=== PATIENT | female | born 1975 | race Caucasian/White ===

== ENCOUNTER → 2020-04-22 | Day surgery (SDC) | payer OTHER ==
[~2020-04-22] MED LIST: Dexamethasone 4 MG/ML SDV ONE; Dextrose 5%-0.9% NaCl 1,000 ML IV SCH; Glucagon,Human Recombinant 1 MG Vial IVPUSH ONE; HYDROmorphone 0.5 MG/0.5 ML Syringe IVPUSH ONE; Lactated Ringers 1,000 ML ONE; Lidocaine 1% 4 ML ONE; Metoclopramide 10 MG/2 ML SDV IVPUSH ONE; Midazolam 1 MG/ML 2 ML SDV ONE; Ondansetron 4 MG/2 ML SDV IVPUSH PRN; Ondansetron 4 MG/2 ML SDV ONE; Propofol 200 MG/20 ML SDV ONE; Succinylcholine/Sod PF 100 MG/5 ML SYRINGE IV ONE; diphenhydrAMINE 50 MG/ML SDV IVPUSH PRN; ePHEDrine 50 MG/ML SDV IVPUSH PRN; fentaNYL 100 MCG/2 ML SDV IVPUSH PRN; fentaNYL 100 MCG/2 ML SDV ONE
--- NOTE | 2020-04-22 09:02 | EDM.PDOC ---
ED HPI GENERAL MEDICAL PROBLEM - General Chief Complaint: ENT Problem Stated Complaint: FB STUCK IN THROAT Time Seen by Provider: 04/22/20 08:46 Source of Information: Reports: Patient History Limitations: Reports: No Limitations - History of Present Illness INITIAL COMMENTS - FREE TEXT/NARRATIVE: 44-year-old female presents to the ED with foreign body sensation in her upper throat or hypopharynx with pressure felt primarily behind the upper sternal notch. She was eating turkey for [employer] dinner last evening at about 1730 hrs. and a piece of turkey got stuck in her upper esophagus. She has had troubles with intermittent problems swallowing with foreign bodies getting stuck but they have always gone down in the past. She states she was up most of the night as her saliva would regurgitate and choke her. She still has the intermittent spasm of pain upper esophagus with swallowing. She is does not believe she has a significant reflux problem. Past surgery is that of a total abdominal hysterectomy and right oophorectomy. She had COVID-19 illness in early December 2019. Onset: Sudden Onset Date: 04/21/20 Onset Time: 17:30 Duration: Hour(s):, Constant Location: Reports: Chest (Pain in the superior aspect of the mid-upper chest made worse by trying to swallow. Foreign body sensation) Quality: Reports: Ache ( since last evening.), Pressure Severity: Moderate (Moderate pain with swallowing.) Improves with: Reports: None Worsens with: Reports: Other (To swallow.) Associated Symptoms: Reports: Chest Pain. 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) (And is nothing will stay down.) Throat Pain Score (Numeric/FACES): 8 - Related Data Allergies Allergy/AdvReac Type Severity Reaction Status Date / Time No Known Allergies Allergy Verified 04/22/20 08:47 Home Meds: Home Meds Levothyroxine Sodium [Synthroid] 150 mcg PO DAILY 12/29/15 [History] Multivitamin [Multi-Vitamin Daily] 1 tab PO DAILY 12/29/15 [History] Past Medical History Cardiovascular History: Reports: None Respiratory History: Reports: None Gastrointestinal History: Reports: Hemorrhoids Genitourinary History: Reports: Urinary Incontinence 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 Denies: Fever, Chills, Malaise, Weakness HEENT: Reports: No Symptoms Respiratory: Reports: No Symptoms Cardiovascular: Reports: No Symptoms Endocrine: Reports: No Symptoms GI/Abdominal: Reports: Other (Odynophagia with foreign body sensation upper esophagus and 1730 hrs. last evening.) : Reports: No Symptoms Musculoskeletal: Reports: No Symptoms Skin: Reports: No Symptoms Neurological: Reports: No Symptoms Psychiatric: Reports: No Symptoms Hematologic/Lymphatic: Reports: No Symptoms Immunologic: Reports: No Symptoms ED EXAM, ENT - Physical Exam Exam: See Below Exam Limited By: No Limitations General Appearance: Alert, WD/WN, No Apparent Distress, Other (Temperature is 36.3 with a heart rate of 64) Eye Exam: Bilateral Eye: Normal Inspection (No blepharal pallor or scleral icterus.), PERRL Mouth/Throat: Normal Inspection, Normal Gums, Normal Lips, Normal Teeth Head: Atraumatic, Normocephalic Neck: Normal Inspection, Supple, Non-Tender, Full Range of Motion. No: Lymphadenopathy (L), Lymphadenopathy (R) Respiratory/Chest: No Respiratory Distress, Lungs Clear, Normal Breath Sounds, No Accessory Muscle Use Cardiovascular: Normal Peripheral Pulses, Regular Rate, Rhythm, No Edema, No Gallop, No Murmur, No Rub GI/Abdominal: Normal Bowel Sounds, Soft, Non-Tender, No Organomegaly, No Mass, Pelvis Stable Back: Normal Inspection, Full Range of Motion Extremities: Normal Inspection, Normal Range of Motion, Non-Tender, No Pedal Edema Neurological: Alert, Oriented, CN II-XII Intact, Normal Cognition, Normal Gait Psychiatric: Normal Affect, Normal Mood Skin: Warm, Intact, Normal Color, No Rash Course - Vital Signs Last Recorded V/S: Last Vital Signs Temp 36.3 C 04/22/20 08:42 Pulse 64 04/22/20 08:42 Resp 16 04/22/20 08:42 BP 157/89 H 04/22/20 08:42 Pulse Ox 99 04/22/20 08:42 - Orders/Labs/Meds Orders: Active Orders 24 hr Category Date Time Status Patient Status [ADT] Routine ADT 04/22/20 12:11 Active Dextrose 5%-0.9% NaCl [Dextrose 5%-Normal Saline] 1,000 Med 04/22/20 09:00 Active ml IV ASDIRECTED Schedule Procedure [COMM] Urgent Oth 04/22/20 12:13 Ordered Medication Orders Dextrose/Sodium Chloride (Dextrose 5%-Normal Saline) 1,000 mls @ 999 mls/hr IV ASDIRECTED [facility] Last Admin: 04/22/20 09:05 Dose: 999 mls/hr Documented by: DANIELLE Labs: Laboratory Tests 04/22/20 04/22/20 Range/Units 08:50 08:50 WBC 4.20 (3.98-10.04) K/mm3 RBC 4.43 (3.98-5.22) M/mm3 Hgb 14.3 (11.2-15.7) gm/dl Hct 41.9 (34.1-44.9) % MCV 94.6 (79.4-94.8) fl MCH 32.3 H (25.6-32.2) pg MCHC 34.1 (32.2-35.5) g/dl RDW Std Deviation 43.9 (36.4-46.3) fL Plt Count 211 (182-369) K/mm3 MPV 8.1 L (9.4-12.3) fl Neut % (Auto) 66.2 (34.0-71.1) % Lymph % (Auto) 21.4 (19.3-51.7) % [place] % (Auto) 8.1 (4.7-12.5) % Eos % (Auto) 3.6 (0.7-5.8) Baso % (Auto) 0.5 (0.1-1.2) % Neut # (Auto) 2.78 (1.56-6.13) K/mm3 Lymph # (Auto) 0.90 L (1.18-3.74) K/mm3 [place] # (Auto) 0.34 (0.24-0.36) K/mm3 Eos # (Auto) 0.15 (0.04-0.36) K/mm3 Baso # (Auto) 0.02 (0.01-0.08) K/mm3 Sodium 144 (136-145) mEq/L Potassium 3.7 (3.5-5.1) mEq/L Chloride 106 (98-107) mEq/L Carbon Dioxide 27 (21-32) mEq/L Anion Gap 14.7 (5-15) BUN 15 (7-18) mg/dL Creatinine 1.0 (0.55-1.02) mg/dL Est Cr Clr Drug Dosing TNP Estimated GFR (MDRD) > 60 (>60) mL/min BUN/Creatinine Ratio 15.0 (14-18) Glucose 94 (74-106) mg/dL Calcium 9.2 (8.5-10.1) mg/dL Total Bilirubin 1.1 H (0.2-1.0) mg/dL AST 19 (15-37) U/L ALT 31 (14-59) U/L Alkaline Phosphatase 66 (46-116) U/L Total Protein 8.5 H (6.4-8.2) g/dl Albumin 4.6 (3.4-5.0) g/dl Globulin 3.9 gm/dL Albumin/Globulin Ratio 1.2 (1-2) Meds: Medications Generic Name Dose Route Start Last Admin Trade Name Freq PRN Reason Stop Dose Admin Dextrose/Sodium Chloride 1,000 mls @ 999 mls/hr 04/22/20 09:00 04/22/20 09:05 Dextrose 5%-Normal Saline IV 999 mls/hr ASDIRECTED KULDEEP Administration Discontinued Medications Generic Name Dose Route Start Last Admin Trade Name Freq PRN Reason Stop Dose Admin Glucagon 1 mg 04/22/20 08:58 04/22/20 09:06 Glucagen IVPUSH 04/22/20 08:59 1 mg ONETIME ONE Administration Hydromorphone HCl 0.5 mg 04/22/20 08:57 04/22/20 09:07 Dilaudid IVPUSH 04/22/20 08:58 0.5 mg ONETIME ONE Administration Metoclopramide HCl 7.5 mg 04/22/20 08:57 04/22/20 09:07 Reglan IVPUSH 04/22/20 08:58 7.5 mg ONETIME ONE Administration - Radiology Interpretation Free Text/Narrative:: 44-year-old female presents to the ED with a foreign body sensation in her upper esophagus since eating turkey for [employer] dinner last evening. At about 1730 hrs. she became aware of piece of turkey not wanting to go down when she swallowed. She has persistent odynophagia upon swallowing in the suprasternal notch area and occasional pressure central chest. She has not had any hemoptysis. She has had some troubles initiating swallowing in the past but does not give much history for a significant gastroesophageal reflux disease. Patient has no ability to swallow her saliva throughout the night. Examination is otherwise untoward. Plan D5 normal saline at open. She will receive Dilaudid 0.5 mg IV with Reglan 7.5 mg IV followed 20 minutes later by glucagon 1 mg IV in the hopes of trying to relieve the foreign body obstruction. Failing this she will require operative intervention with EGD. - Re-Assessments/Exams Free Text/Narrative Re-Assessment/Exam: 04/22/20 10:07 portable chest x-ray was completely normal with clear lung stevenson and normal cardiac silhouette. Patient did not get any relief of foreign body obstruction with IV medications. Attempted to swallow some water after the glucagon was given IV and she regurgitated it immediately. It appears therefore she will require EGD and I will speak with on-call surgeon Dr. Nicholas Aranda to see her in consultation with regards to removal of the foreign body in her proximal esophagus. 04/22/20 10:09 Lab work reveals a normal white count at 4.20 differential 66.2% neutrophils. Hemoglobin is 14.3 with hematocrit of 41.9. Platelet count is 211,000. Sodium 144 with potassium of 3.7 chloride 106 with a bicarb of 27. Anion gap is 14.7. BUN is 15 with a creatinine of 1.0 and a GFR greater than 60. Glucose is 94 with a calcium of 9.2. Total bilirubin is minimally elevated at 1.1. AST 19 with an ALT of 31 and alk phosphatase of 66. Total protein is 8.5 with an albumin fraction of 4.6. 04/22/20 11:51 patient did feel for period of time that she could swallow her saliva. However upon challenging her some serum mast she regurgitated it immediately. will therefore be seeing her in the ED at this time for EGD and removal of impacted food bolus in his upper esophagus. Departure - Departure Time of Disposition: 12:16 Disposition: DC/Tfer to Critical Access [facility] Condition: Fair Clinical Impression: Esophageal obstruction due to food impaction - Discharge Information *PRESCRIPTION DRUG MONITORING PROGRAM REVIEWED*: Not Applicable *COPY OF PRESCRIPTION DRUG MONITORING REPORT IN PATIENT LUDMILA: Not Applicable Sepsis Event Note (ED) - Evaluation Sepsis Screening Result: No Definite Risk - Focused Exam Vital Signs: Vital Signs Temp Pulse Resp BP Pulse Ox 04/22/20 08:42 36.3 C 64 16 157/89 H 99 - My Orders Last 24 Hours: My Active Orders 04/22/20 09:00 Dextrose 5%-0.9% NaCl [Dextrose 5%-Normal Saline] 1,000 ml IV ASDIRECTED - Assessment/Plan Last 24 Hours: My Active Orders 04/22/20 09:00 Dextrose 5%-0.9% NaCl [Dextrose 5%-Normal Saline] 1,000 ml IV ASDIRECTED
--- NOTE | 2020-04-22 09:53 | CR ---
Chest: Portable view of the chest was obtained. Comparison: No prior chest imaging is available. Heart size and mediastinum are normal. Lungs are clear with no acute parenchymal change. Bony structures are grossly intact. No radiopaque foreign object is seen. Impression: 1. Nothing acute is seen on portable chest x-ray. Diagnostic code #1
--- NOTE | 2020-04-22 11:48 | PCM.PREANE ---
Preanesthetic Assessment - Procedure Proposed Procedure: Foreign Body Extraction/EGD - Anesthesia/Transfusion/Family Hx Anesthesia History: Prior Anesthesia Without Reaction Family History of Anesthesia Reaction: No Transfusion History: No Prior Transfusion(s) Type of Transfusion Reactions: Reports: Unknown Intubation History: Unknown - Review of Systems General: No Symptoms Pulmonary: No Symptoms (Covid +: 2019-fatigue) Cardiovascular: No Symptoms Gastrointestinal: No Symptoms, Difficulty Swallowing Neurological: No Symptoms Other: Reports: Easy Bruising, Thyroid Problems (Hypothyroid) - Physical Assessment NPO Status Date: 04/22/20 NPO Status Time: 07:30 (pill) Vital Signs: Last Vital Signs Temp 36.3 C 04/22/20 08:42 Pulse 64 04/22/20 08:42 Resp 16 04/22/20 08:42 BP 157/89 H 04/22/20 08:42 Pulse Ox 99 04/22/20 08:42 Height: 1.7 m Weight: 70.307 kg ASA Class: 2E Mental Status: Alert & Oriented x3 Airway Class: Mallampati = 2 Dentition: Reports: Normal Dentition, Caries Thyro-Mental Finger Breadths: 3 Mouth Opening Finger Breadths: 3 ROM/Head Extension: Full Lungs: Clear to Auscultation, Normal Respiratory Effort Cardiovascular: Regular Rate, Regular Rhythm, No Murmurs - Lab Values: Laboratory Last Values WBC 4.20 K/mm3 (3.98-10.04) 04/22/20 08:50 RBC 4.43 M/mm3 (3.98-5.22) 04/22/20 08:50 Hgb 14.3 gm/dl (11.2-15.7) 04/22/20 08:50 Hct 41.9 % (34.1-44.9) 04/22/20 08:50 MCV 94.6 fl (79.4-94.8) 04/22/20 08:50 MCH 32.3 pg (25.6-32.2) H 04/22/20 08:50 MCHC 34.1 g/dl (32.2-35.5) 04/22/20 08:50 RDW Std Deviation 43.9 fL (36.4-46.3) 04/22/20 08:50 Plt Count 211 K/mm3 (182-369) 04/22/20 08:50 MPV 8.1 fl (9.4-12.3) L 04/22/20 08:50 Neut % (Auto) 66.2 % (34.0-71.1) 04/22/20 08:50 Lymph % (Auto) 21.4 % (19.3-51.7) 04/22/20 08:50 [place] % (Auto) 8.1 % (4.7-12.5) 04/22/20 08:50 Eos % (Auto) 3.6 (0.7-5.8) 04/22/20 08:50 Baso % (Auto) 0.5 % (0.1-1.2) 04/22/20 08:50 Neut # (Auto) 2.78 K/mm3 (1.56-6.13) 04/22/20 08:50 Lymph # (Auto) 0.90 K/mm3 (1.18-3.74) L 04/22/20 08:50 [place] # (Auto) 0.34 K/mm3 (0.24-0.36) 04/22/20 08:50 Eos # (Auto) 0.15 K/mm3 (0.04-0.36) 04/22/20 08:50 Baso # (Auto) 0.02 K/mm3 (0.01-0.08) 04/22/20 08:50 Sodium 144 mEq/L (136-145) 04/22/20 08:50 Potassium 3.7 mEq/L (3.5-5.1) 04/22/20 08:50 Chloride 106 mEq/L (98-107) 04/22/20 08:50 Carbon Dioxide 27 mEq/L (21-32) 04/22/20 08:50 Anion Gap 14.7 (5-15) 04/22/20 08:50 BUN 15 mg/dL (7-18) 04/22/20 08:50 Creatinine 1.0 mg/dL (0.55-1.02) 04/22/20 08:50 Est Cr Clr Drug Dosing TNP 04/22/20 08:50 Estimated GFR (MDRD) > 60 mL/min (>60) 04/22/20 08:50 BUN/Creatinine Ratio 15.0 (14-18) 04/22/20 08:50 Glucose 94 mg/dL (74-106) 04/22/20 08:50 Calcium 9.2 mg/dL (8.5-10.1) 04/22/20 08:50 Total Bilirubin 1.1 mg/dL (0.2-1.0) H 04/22/20 08:50 AST 19 U/L (15-37) 04/22/20 08:50 ALT 31 U/L (14-59) 04/22/20 08:50 Alkaline Phosphatase 66 U/L (46-116) 04/22/20 08:50 Total Protein 8.5 g/dl (6.4-8.2) H 04/22/20 08:50 Albumin 4.6 g/dl (3.4-5.0) 04/22/20 08:50 Globulin 3.9 gm/dL 04/22/20 08:50 Albumin/Globulin Ratio 1.2 (1-2) 04/22/20 08:50 Above labs reviewed and noted and within acceptable ranges to proceed with procedure. - Imaging/EKG Impressions: CXR: negative - Allergies Allergies/Adverse Reactions: Allergies Allergy/AdvReac Type Severity Reaction Status Date / Time No Known Allergies Allergy Verified 04/22/20 08:47 - Anesthesia Plan Pre-Op Medication Ordered: None - Acknowledgements Anesthesia Type Planned: General Anesthesia Pt an Appropriate Candidate for the Planned Anesthesia: Yes Alternatives and Risks of Anesthesia Discussed w Pt/Guardian: Yes Pt/Guardian Understands and Agrees with Anesthesia Plan: Yes PreAnesthesia Questionnaire HEENT History: Reports: Impaired Vision Cardiovascular History: Reports: None Respiratory History: Reports: None Gastrointestinal History: Reports: Hemorrhoids Genitourinary History: Reports: Urinary Incontinence 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: post ablation, dypareuremia, irreg menstruation, ovarian cyst, pelvic pain, vaginitis, Endocrine/Metabolic History: Reports: Hypothyroidism - Past Surgical History Other HEENT Surgeries/Procedures: root canal Female Surgical History: Reports: Hysterectomy Other Female Surgeries/Procedures: novasure - SUBSTANCE USE Tobacco Use Status *Q: Never Tobacco User Recreational Drug Use History: No - HOME MEDS Home Medications: Home Meds Levothyroxine Sodium [Synthroid] 150 mcg PO DAILY 12/29/15 [History] Multivitamin [Multi-Vitamin Daily] 1 tab PO DAILY 12/29/15 [History] - CURRENT (IN HOUSE) MEDS Current Meds: Current Medications Dextrose/Sodium Chloride (Dextrose 5%-Normal Saline) 1,000 mls @ 999 mls/hr IV ASDIRECTED KULDEEP Last Admin: 04/22/20 09:05 Dose: 999 mls/hr Documented by: Discontinued Medications Glucagon (Glucagen) 1 mg IVPUSH ONETIME ONE Stop: 04/22/20 08:59 Last Admin: 04/22/20 09:06 Dose: 1 mg Documented by: Hydromorphone HCl (Dilaudid) 0.5 mg IVPUSH ONETIME ONE Stop: 04/22/20 08:58 Last Admin: 04/22/20 09:07 Dose: 0.5 mg Documented by: Metoclopramide HCl (Reglan) 7.5 mg IVPUSH ONETIME ONE Stop: 04/22/20 08:58 Last Admin: 04/22/20 09:07 Dose: 7.5 mg Documented by:
--- NOTE | 2020-04-22 11:49 | PCM.HP.2 ---
H&P History of Present Illness - General Date of Service: 04/22/20 Source of Information: Patient, Provider History Limitations: Reports: No Limitations - History of Present Illness Initial Comments - Free Text/Narative: The patient is a 44-year-old lady who presents with an esophageal food obstruction. She reports eating turkey and has not been able to get it to pass down into her stomach. She is not handling her saliva and has had spitting up. She not been able to tolerate p.o. since arrival to the emergency department. She reports this has happened before to a lesser degree, she has difficulty taking pills. She reports her father also has this problem, but it has improved since he started taking Pepcid. Throat Pain Score (Numeric/FACES): 8 - Related Data Allergies/Adverse Reactions: Allergies Allergy/AdvReac Type Severity Reaction Status Date / Time No Known Allergies Allergy Verified 04/22/20 08:47 Home Medications: Home Meds Levothyroxine Sodium [Synthroid] 150 mcg PO DAILY 12/29/15 [History] Multivitamin [Multi-Vitamin Daily] 1 tab PO DAILY 12/29/15 [History] Past Medical History HEENT History: Reports: Impaired Vision Cardiovascular History: Reports: None Respiratory History: Reports: None Gastrointestinal History: Reports: Hemorrhoids Genitourinary History: Reports: Urinary Incontinence 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: post ablation, dypareuremia, irreg menstruation, ovarian cyst, pelvic pain, vaginitis, Endocrine/Metabolic History: Reports: Hypothyroidism - Past Surgical History Other HEENT Surgeries/Procedures: root canal Female Surgical History: Reports: Hysterectomy Other Female Surgeries/Procedures: novasure Social & Family History - Family History Cardiac: Reports: Hypertension. Denies: ME Neurological: Denies: CVA Endocrine/Metabolic: Reports: Diabetes, Type I, Diabetes, type II Oncologic: Reports: None - Tobacco Use Tobacco Use Status *Q: Never Tobacco User - Caffeine Use Caffeine Use: Reports: None - Recreational Drug Use Recreational Drug Use: No - Living Situation & Occupation Living situation: Reports: Occupation: Employed H&P Review of Systems - Review of Systems: Review Of Systems: See Below General: Reports: No Symptoms HEENT: Reports: No Symptoms Pulmonary: Reports: No Symptoms Cardiovascular: Reports: No Symptoms Gastrointestinal: Reports: No Symptoms. Denies: Constipation, Diarrhea, Hematochezia, Melena Genitourinary: Reports: No Symptoms Skin: Reports: No Symptoms Neurological: Reports: No Symptoms Hematologic/Lymphatic: Reports: No Symptoms Exam - Exam Exam: See Below - Vital Signs Vital Signs: Last Vital Signs Temp 36.3 C 04/22/20 08:42 Pulse 64 04/22/20 08:42 Resp 16 04/22/20 08:42 BP 157/89 H 04/22/20 08:42 Pulse Ox 99 04/22/20 08:42 Weight: 70.307 kg - Exam Quality Assessment: No: Supplemental Oxygen General: Alert, Oriented HEENT: Conjunctiva Clear, EOMI Neck: Supple Lungs: Normal Respiratory Effort Cardiovascular: Regular Rate, Regular Rhythm GI/Abdominal Exam: Soft, Non-Tender, No Distention Skin: Warm, Dry, Intact Neurological: Cranial Nerves Intact Neuro Extensive - Mental Status: Oriented x3, Normal Mood/Affect - Patient Data Lab Results Last 24 hrs: Laboratory Results - last 24 hr 04/22/20 04/22/20 Range/Units 08:50 08:50 WBC 4.20 (3.98-10.04) K/mm3 RBC 4.43 (3.98-5.22) M/mm3 Hgb 14.3 (11.2-15.7) gm/dl Hct 41.9 (34.1-44.9) % MCV 94.6 (79.4-94.8) fl MCH 32.3 H (25.6-32.2) pg MCHC 34.1 (32.2-35.5) g/dl RDW Std Deviation 43.9 (36.4-46.3) fL Plt Count 211 (182-369) K/mm3 MPV 8.1 L (9.4-12.3) fl Neut % (Auto) 66.2 (34.0-71.1) % Lymph % (Auto) 21.4 (19.3-51.7) % [place] % (Auto) 8.1 (4.7-12.5) % Eos % (Auto) 3.6 (0.7-5.8) Baso % (Auto) 0.5 (0.1-1.2) % Neut # (Auto) 2.78 (1.56-6.13) K/mm3 Lymph # (Auto) 0.90 L (1.18-3.74) K/mm3 [place] # (Auto) 0.34 (0.24-0.36) K/mm3 Eos # (Auto) 0.15 (0.04-0.36) K/mm3 Baso # (Auto) 0.02 (0.01-0.08) K/mm3 Sodium 144 (136-145) mEq/L Potassium 3.7 (3.5-5.1) mEq/L Chloride 106 (98-107) mEq/L Carbon Dioxide 27 (21-32) mEq/L Anion Gap 14.7 (5-15) BUN 15 (7-18) mg/dL Creatinine 1.0 (0.55-1.02) mg/dL Est Cr Clr Drug Dosing TNP Estimated GFR (MDRD) > 60 (>60) mL/min BUN/Creatinine Ratio 15.0 (14-18) Glucose 94 (74-106) mg/dL Calcium 9.2 (8.5-10.1) mg/dL Total Bilirubin 1.1 H (0.2-1.0) mg/dL AST 19 (15-37) U/L ALT 31 (14-59) U/L Alkaline Phosphatase 66 (46-116) U/L Total Protein 8.5 H (6.4-8.2) g/dl Albumin 4.6 (3.4-5.0) g/dl Globulin 3.9 gm/dL Albumin/Globulin Ratio 1.2 (1-2) Result Diagrams: 04/22/20 08:50 04/22/20 08:50 Sepsis Event Note - Evaluation Sepsis Screening Result: No Definite Risk - Focused Exam Vital Signs: Vital Signs Temp Pulse Resp BP Pulse Ox 04/22/20 08:42 36.3 C 64 16 157/89 H 99 *Q Meaningful Use (ADM) - VTE Risk Assess *Q Each Risk Factor Represents 1 Point: Age 41 - 59 years Total Score 1 Point Risk Factors: 1 - Problem List (1) Esophageal obstruction due to food impaction SNOMED Code(s): 691916573 ICD Code: K22.2 - ESOPHAGEAL OBSTRUCTION; T18.128A - FOOD IN ESOPHAGUS CAUSING OTHER INJURY, INITIAL ENCOUNTER Status: Acute Current Visit: Yes Problem List Initiated/Reviewed/Updated: Yes Orders Last 24hrs: Active Orders 24 hr Category Date Time Status Dextrose 5%-0.9% NaCl [Dextrose 5%-Normal Saline] 1,000 Med 04/22/20 09:00 Active ml IV ASDIRECTED Medication Orders Dextrose/Sodium Chloride (Dextrose 5%-Normal Saline) 1,000 mls @ 999 mls/hr IV ASDIRECTED KULDEEP Last Admin: 04/22/20 09:05 Dose: 999 mls/hr Documented by: DANIELLE Assessment/Plan Comment:: 44-year-old lady with esophageal food obstruction -Discussed EGD with intervention. Discussed risks of bleeding and perforation. Her written consent was obtained -N.p.o. -IV fluid resuscitation We'll plan for outpatient work-up and further treatment due to the recurrent nature of this problem. Melissa Callejas MD General Surgery
--- NOTE | 2020-04-22 13:01 | PCM.OPNOTE ---
- General Post-Op/Procedure Note Date of Surgery/Procedure: 04/22/20 Operative Procedure(s): EGD with intervention Findings: 1. Esophageal food obstruction at the GE junction 2. Gastritis 3. Duodenitis Pre Op Diagnosis: Esophageal food obstruction Post-Op Diagnosis: same Anesthesia Technique: General ET Tube Primary Surgeon: Melissa Callejas Anesthesia Provider: Sushma Lafleur Pathology: 1. Duodenal bulb biopsies 2. Gastric antrum biopsies Fluid Replacement, Intraop: 500 Output, Urine Amount: 0 EBL in mLs: 0 Complications: none apparent Condition: Good
--- NOTE | 2020-04-22 13:06 | PCM.PRNOTE ---
- Free Text/Narrative Note: Operative Report Date of procedure: April 22, 2020 Preoperative diagnosis: Esophageal food obstruction Postoperative diagnosis: Same Surgeon: Melissa Callejas M.D. Procedure: EGD with intervention Anesthesia: General ET Cushion Builder: Sushma Lafleur CRNA IV fluids: 500 mL Estimated blood loss: 0 mL Findings: 1. Esophageal food obstruction 2. Gastritis 3. Duodenitis Specimens: 1. Gastric antrum biopsy 2. Duodenal bulb biopsy Indication: The patient is a 44 -year-old lady who presented with esophageal food obstruction. The patient was consented for an EGD with intervention. Risk of bleeding and perforation were discussed. The patient's consent was obtained Description of the procedure: The patient was taken to the endoscopy suite and placed on hemodynamic monitoring. The nurse coding spec induced general anesthesia and the patient was intubated without difficulty. A bite block was placed. The patient was positioned in the left lateral decubitus position. A timeout was performed. The endoscope was gently placed into the mouth to the back of the pharynx and introduced into the esophagus. The scope was gently advanced under direct visualization down to the level of the lower esophageal sphincter. Food bolus was visible at this point. This was removed partially using a hexagonal snare. The remaining food bolus was then pushed into the stomach. The stomach was then entered. Normal rugal folds were noted. The scope was advanced into the antrum. We noted erythema consistent with gastritis. The pylorus was then entered and the first and second portion of the duodenum was inspected. We did note some edema and friability in the duodenal bulb. Biopsies were taken in the duodenal bulb using a cold biopsy forceps. There were no ulcerations in the duodenum. The scope was withdrawn into the antrum and biopsies were taken of the antral mucosa using a cold biopsy forceps the scope was then retroflexed in the cardia and fundus were investigated. There is no evidence of any hiatal hernia. No other abnormalities were noted. The scope was then withdrawn while inspecting the esophagus. There was some mild bleeding as well as edema and erythema of the mucosa at the lower esophageal junction. The scope was fully withdrawn and there were no additional findings. The procedure was terminated. the patient tolerated the procedure well without any evidence of complications. We will obtain a x-ray in the PACU of the chest to fully evaluate for any injury to the lower esophageal sphincter. Melissa Callejas MD General Surgery
--- NOTE | 2020-04-22 13:21 | PCM.POSTAN ---
POST ANESTHESIA ASSESSMENT - MENTAL STATUS Mental Status: Alert - VITAL SIGNS Vital Signs: Last Vital Signs Temp 98.1 04/22/20 1312 Pulse 86 04/22/20 1312 Resp 10 04/22/20 1312 BP 146/82 04/22/20 1312 Pulse Ox 97% 04/22/20 1312 - RESPIRATORY Respiratory Status: Respiratory Rate WNL, Airway Patent, O2 Saturation Stable, Supplemental Oxygen - CARDIOVASCULAR CV Status: Pulse Rate WNL, Blood Pressure Stable - GASTROINTESTINAL GI Status: No Symptoms - POST OP HYDRATION Hydration Status: Adequate & Stable
--- NOTE | 2020-04-22 13:23 | PCM48HPAN ---
Post Anesthesia Note - EVALUATION WITHIN 48HRS OF ANESTHETIC Vital Signs in Normal Range: Yes Patient Participated in Evaluation: Yes Respiratory Function Stable: Yes Airway Patent: Yes Cardiovascular Function Stable: Yes Hydration Status Stable: Yes Pain Control Satisfactory: Yes Nausea and Vomiting Control Satisfactory: Yes Mental Status Recovered: Yes Vital Signs: Last Vital Signs Temp 36.3 C 04/22/20 08:42 Pulse 64 04/22/20 08:42 Resp 16 04/22/20 08:42 BP 157/89 H 04/22/20 08:42 Pulse Ox 99 04/22/20 08:42
[2020-04-22 14:06] VITALS: BP 135/78; PULSE 58
--- NOTE | 2020-04-23 09:57 | CR ---
Chest: Portable view of the chest was obtained. Comparison: Prior chest x-ray of 04/22/20. Heart size and mediastinum are normal. Lungs are clear with no acute parenchymal change. Bony structures showed nothing acute. Impression: 1. Nothing acute is seen on portable chest x-ray. Diagnostic code #1 I agree with preliminary report from [facility], finalized on 04/22/20, 2:33 PM [employer]
== END | disposition home or self-care (01) ==
LOC: JD.ED 08:31 → JD.SDS 11:50
PROVIDERS: ATTEND Surgery
DX: K29.50 Unspecified chronic gastritis without bleeding (principal); T18.128A Food in esophagus causing other injury, initial encounter; K29.80 Duodenitis without bleeding; I10 Essential (primary) hypertension; E11.9 Type 2 diabetes mellitus without complications; E03.9 Hypothyroidism, unspecified; Z86.73 Personal history of transient ischemic attack (TIA), and cerebral infarction without residual deficits; Z79.890 Hormone replacement therapy
CPT/HCPCS: 36415; 43239; 71045; 80053; 85025; 96374; 96375; 99284; J0330; J1100; J1170; J1610; J2001; J2250; J2405; J2704; J2765; J3010; J7042; J7120; 00731